=== PATIENT | male | born 1935 | race Caucasian/White ===

== ENCOUNTER → 2017-07-15 | Outpatient (CLI) | payer MEDICARE ==
[~2017-07-15] MED LIST: ALBU8I INH; ASPI-99 PO; FISH120014 PO; HYDR-3580 PO; METO25 PO; NEXI40CA PO; POTA10IN2 PO; PRAS10 PO; ROSU20 PO; TAB-TAB PO; TIOT18I INH; VITA20002 PO
--- NOTE | 2017-07-23 10:05 | RSPPFT ---
DATE OF PROCEDURE: 07/15/17 COMMENTS: VOLUMES DYNAMIC: FVC normal; FEV1 mildly reduced. STATIC: FRC, RV and TLC normal. FLOWS: FEV1% moderately reduced; FEF 25-75 severely reduced. DIFFUSION: Moderately reduced. FLOW VOLUME LOOP: Pattern of variable intrathoracic airways obstruction. IMPRESSION: Mild to moderate obstructive ventilatory defect without significant hyperinflation. There is a moderate reduction in diffusion and minimal improvement post-bronchodilator.
== END ==
LOC: PHRSP 07:34
PROVIDERS: ATTEND Internal Medicine
DX: J44.9 Chronic obstructive pulmonary disease, unspecified (principal)
CPT/HCPCS: 94060; 94620; 94726; 94729

== ENCOUNTER 2017-12-10 13:04 | Observation (INO) | payer MEDICARE ==
[~2017-12-10] VITALS: Ht 175.3 cm; Wt 85.0 kg
[2017-12-10] VITALS (8 sets, daily range): BP systolic 104–167; BP diastolic 59–74; PULSE 48–80; RESP 16–20; TEMP 97.7–98.2; O2SAT 94–98
[2017-12-10] MEDS ORDERED: SODIUM CHLORIDE 0.9% FLUSH 10 ML FLUSH IVF PRN (13:30)
[2017-12-10] MEDS ORDERED: ASPIRIN 81 MG CHEW TAB PO ONE (13:30)
--- NOTE | 2017-12-10 13:31 | PD ---
HPI Chief Complaint: Cardiac Complaint Time Seen by Provider: 13:22 Travel History International Travel<30 days: No Contact w/Intl Traveler<30days: No Traveled to known affect area: No History of Present Illness HPI 82-year-old male with history of CAD status post CABG, high cholesterol, presents to the ER today because he is having left lateral chest and left arm pains. He states the pain is currently a 7 out of 10. He denies any coughing, shortness of breath, or other symptoms. He states that when he had his cardiac issues, he had a similar type of pain. 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) Hypertension: No Immune Disorder: No Musculoskeletal: Yes (ABD HERNIA) Neurologic: No Psychiatric: No Reproductive: No Respiratory: Yes Radiation Therapy: No Sleep Apnea: No Ulcer: Yes Past Surgical History Abdominal Surgery: Yes (COLON RESECTION FOR CA) Coronary Artery Bypass Graft: Yes (AUG 2014) Tonsillectomy: Yes Other Surgery: Yes (colon ) Social History Alcohol Use: Yes (RARE) Tobacco Use: No (QUIT 1.5 YEARS AGO) Substance Use: No Allergies-Medications (Allergen,Severity, Reaction): Coded Allergies: No Known Allergies (Verified , 01/16/15) Reported Meds & Prescriptions Reported Meds & Active Scripts Active Spiriva 18 Mcg Oral Inh (Tiotropium [place]) 18 Mcg Inhp 18 Mcg INH DAILY Ventolin Hfa (Albuterol Sulfate) 60 Puff/8 Gm Aero 2 Puff INH Q4H PRN 30 Days Metoprolol Tartrate 25 mg (Metoprolol Tartrate) 25 Mg Tab 25 Mg PO BID 30 Days Hydrocodone/Acetaminophen 7.5 mg/325 mg 1 Tab Tab 1 Tab PO Q6 PRN Effient (Prasugrel) 10 Mg Tab 10 Mg PO DAILY Reported Potassium Chloride ER 10 meq (Potassium Chloride) 10 Meq Cap 1 Cap PO DAILY Multivitamin (Multivitamins) 1 Tab Tab 1 Tab PO DAILY Vitamin D-3 (Cholecalciferol) 2 000 Tab 4,000 Unit PO DAILY Fish Oil ([place]-3 Fatty Acids) 1,200 Mg Cap 1 Cap PO DAILY Aspirin 81 Mg Tab 81 Mg PO HS Crestor (Rosuvastatin Calcium) 20 Mg Tab 5 Mg PO HS Nexium (Esomeprazole Magnesium) 40 Mg Cap 40 Mg PO DAILY Review of Systems Except as stated in HPI: all other systems reviewed are Neg Physical Exam Narrative GENERAL: Well-developed elderly male patient currently in mild distress. Awake and oriented 3. SKIN: Focused skin assessment warm/dry. HEAD: Atraumatic. Normocephalic. EYES: Pupils equal and round. No scleral icterus. No injection or drainage. ENT: No nasal bleeding or discharge. Mucous membranes pink and moist. NECK: Trachea midline. No JVD. Supple. CARDIOVASCULAR: Regular rate and rhythm. No murmur appreciated. Pulses are present and equal bilaterally. RESPIRATORY: No accessory muscle use. Clear to auscultation. Breath sounds equal bilaterally. GASTROINTESTINAL: Abdomen soft, non-tender, nondistended. Hepatic and splenic margins not palpable. MUSCULOSKELETAL: No obvious deformities. No clubbing. No cyanosis. No edema. NEUROLOGICAL: Awake and alert. No obvious cranial nerve deficits. Motor grossly within normal limits. Normal speech. PSYCHIATRIC: Appropriate mood and affect; insight and judgment normal. Data Data Last Documented VS Vital Signs Date Time Temp Pulse Resp B/P (MAP) Pulse Ox O2 Delivery O2 Flow Rate FiO2 12/10/17 14:05 48 17 109/59 (76) 96 Room Air 12/10/17 13:09 97.7 Orders Orders Complete Blood Count With Diff (12/10/17 13:21) Basic Metabolic Panel (Bmp) (12/10/17 13:21) Ckmb (Isoenzyme) Profile (12/10/17 13:21) Troponin I (12/10/17 13:21) Iv Access Insert/Monitor (12/10/17 13:21) Ecg Monitoring (12/10/17 13:21) Oxygen Administration (12/10/17 13:21) Oximetry (12/10/17 13:21) Electrocardiogram (12/10/17 13:22) Comprehensive Metabolic Panel (12/10/17 13:22) Magnesium (Mg) (12/10/17 13:22) Prothrombin Time / Inr (Pt) (12/10/17 13:22) Act Partial Throm Time (Ptt) (12/10/17 13:22) Bilateral Bp Monitoring (12/10/17 13:22) Aspirin Chew (Aspirin Chew) (12/10/17 13:30) Sodium Chloride 0.9% Flush (Ns Flush) (12/10/17 13:30) Chest, Pa & Lat (12/10/17 13:22) Labs Laboratory Tests Test 12/10/17 13:27 12/10/17 13:56 White Blood Count 6.3 TH/MM3 Red Blood Count 4.70 MIL/MM3 Hemoglobin 14.7 GM/DL Hematocrit 41.8 % Mean Corpuscular Volume 89.1 FL Mean Corpuscular Hemoglobin 31.3 PG Mean Corpuscular Hemoglobin Concent 35.1 % Red Cell Distribution Width 14.4 % Platelet Count 196 TH/MM3 Mean Platelet Volume 8.5 FL Neutrophils (%) (Auto) 73.0 % Lymphocytes (%) (Auto) 18.5 % Monocytes (%) (Auto) 5.8 % Eosinophils (%) (Auto) 2.0 % Basophils (%) (Auto) 0.7 % Neutrophils # (Auto) 4.6 TH/MM3 Lymphocytes # (Auto) 1.2 TH/MM3 Monocytes # (Auto) 0.4 TH/MM3 Eosinophils # (Auto) 0.1 TH/MM3 Basophils # (Auto) 0.0 TH/MM3 CBC Comment DIFF FINAL Differential Comment Blood Urea Nitrogen 17 MG/DL Creatinine 1.37 MG/DL Random Glucose 159 MG/DL Total Protein 7.8 GM/DL Albumin 3.6 GM/DL Calcium Level 9.0 MG/DL Magnesium Level 2.0 MG/DL Alkaline Phosphatase 114 U/L Aspartate Amino Transf (AST/SGOT) 32 U/L Alanine Aminotransferase (ALT/SGPT) 26 U/L Total Bilirubin 0.6 MG/DL Sodium Level 141 MEQ/L Potassium Level 3.8 MEQ/L Chloride Level 107 MEQ/L Carbon Dioxide Level 24.3 MEQ/L Anion Gap 10 MEQ/L Estimat Glomerular Filtration Rate 50 ML/MIN Total Creatine Kinase 81 U/L Troponin I LESS THAN 0.02 NG/ML Prothrombin Time 10.8 SEC Prothromb Time International Ratio 1.1 RATIO Activated Partial Thromboplast Time 28.6 SEC MDM Medical Decision Making Medical Screen Exam Complete: Yes Emergency Medical Condition: Yes Medical Record Reviewed: Yes Interpretation(s) EKG shows NSR, no ST elevation or depression, and no arrhythmias. No significant T-wave inversions. Laboratory Tests Test 12/10/17 13:27 12/10/17 13:56 Neutrophils (%) (Auto) 73.0 % (16.0-70.0) Creatinine 1.37 MG/DL (0.60-1.30) Random Glucose 159 MG/DL (74-106) Estimat Glomerular Filtration Rate 50 ML/MIN (>89) Troponin I LESS THAN 0.02 NG/ML Last 24 hours Impressions Chest X-Ray 12/10/17 1322 Signed Impressions: Service Date/Time: Sunday, December 10, 2017 13:45 - CONCLUSION: No acute disease. Abdirizak Merrill Jr., MD Differential Diagnosis Chest pain: ACS versus dysrhythmias versus pneumonia versus musculoskeletal Narrative Course EKG did not show any signs of ST changes. Cardiac enzymes are negative. Chest x-ray was unremarkable. Patient was given aspirin and my plan would be to admit the patient for further evaluation. Chest pain appears to be fairly atypical but with his history, plan would be to admit him to chest pain center for further evaluation of chest pain. Diagnosis Primary Impression: Atypical chest pain Admitting Information Admitting Physician Requests: it Ria Cuba MD Dec 10, 2017 13:31
[2017-12-10 13:46] LABS: AUTOMATED NEUTROPHIL # 4.6 TH/MM3 (1.8-7.7); BASOPHIL % 0.7 % (0.0-2.0); EOSINOPHIL # 0.1 TH/MM3 (0-0.4); HEMATOCRIT 41.8 % (39.0-51.0); HEMOGLOBIN 14.7 GM/DL (13.0-17.0); LYMPH % 18.5 % (9.0-44.0); LYMPHOCYTE # 1.2 TH/MM3 (1.0-4.8); MEAN CELL VOLUME 89.1 FL (80.0-100.0); MEAN CORPUSCULAR HEMOGLOBIN 31.3 PG (27.0-34.0); MEAN CORPUSCULAR HGB CONC 35.1 % (32.0-36.0); MEAN PLATELET VOLUME 8.5 FL (7.0-11.0); MONO % 5.8 % (0.0-8.0); MONOCYTE # 0.4 TH/MM3 (0-0.9); PLATELET COUNT 196 TH/MM3 (150-450); RED CELL DISTRIBUTION WIDTH 14.4 % (11.6-17.2); WHITE BLOOD COUNT 6.3 TH/MM3 (4.0-11.0)
[2017-12-10 14:08] LABS: BICARBONATE 25.2 MEQ/L (21.0-32.0); BLOOD UREA NITROGEN 16 MG/DL (7-18); CALCIUM 9.2 MG/DL (8.5-10.1); CHLORIDE 107 MEQ/L (98-107); CREATININE 1.29 MG/DL (0.60-1.30); GLOMERULAR FILTRATION RATE 54 ML/MIN (>89); GLUCOSE,RANDOM 168 MG/DL (74-106); SODIUM (NA) 140 MEQ/L (136-145)
--- NOTE | 2017-12-10 14:09 | RADRPT ---
EXAM DATE/TIME: 12/10/2017 13:45 [facility] COMPARISON: No previous studies available for comparison. INDICATIONS : Chest pain that radiates down left arm. MEDICAL HISTORY : Myocardial infarction. SURGICAL HISTORY : Coronary artery stent. CABG. ENCOUNTER: Initial ACUITY: 2 days PAIN SCORE: 7/10 LOCATION: Bilateral chest FINDINGS: PA and lateral views of the chest demonstrate the lungs to be symmetrically aerated without evidence of mass, infiltrate or effusion. The cardiomediastinal contours are unremarkable. Osseous structure s are intact. Median sternotomy wires and plate. CONCLUSION: No acute disease. Abdirizak Merrill Jr., MD on December 10, 2017 at 14:06 Board Certified Radiologist. This report was verified electronically.
[2017-12-10 14:12] LABS: TROPONIN I LESS THAN 0.02 NG/ML (0.02-0.05)
[2017-12-10 14:38] LABS: INTERNATIONAL NORMALIZED RATIO 1.1 RATIO; PROTHROMBIN TIME - PATIENT 10.8 SEC (9.8-11.6)
[2017-12-10 15:13] LABS: ALBUMIN 3.6 GM/DL (3.4-5.0); ALT (GPT) 26 U/L (12-78); AST (GOT) 32 U/L (15-37); BICARBONATE 24.3 MEQ/L (21.0-32.0); BLOOD UREA NITROGEN 17 MG/DL (7-18); CHLORIDE 107 MEQ/L (98-107); CREATININE 1.37 MG/DL (0.60-1.30); GLOMERULAR FILTRATION RATE 50 ML/MIN (>89); GLUCOSE,RANDOM 159 MG/DL (74-106); SODIUM (NA) 141 MEQ/L (136-145)
[2017-12-10 15:18] LABS: ALKALINE PHOSPHATASE 114 U/L (45-117); TOTAL BILIRUBIN ADULT 0.6 MG/DL (0.2-1.0); TOTAL PROTEIN 7.8 GM/DL (6.4-8.2)
[2017-12-10] MEDS ORDERED: FIBE500T PO (16:06)
[2017-12-10] MEDS ORDERED: ONCETAB7 (16:06)
[2017-12-10] MEDS ORDERED: PLAV75TA29 PO (16:06)
[2017-12-10] MEDS ORDERED: OMEGCAP PO (16:06)
[2017-12-10] MEDS ORDERED: ATOR80TA45 PO (16:06)
[2017-12-10] MEDS ORDERED: ASPI81CH6 CHEW (16:06)
[2017-12-10] MEDS ORDERED: METO25TA3 PO (16:06)
[2017-12-10] MEDS ORDERED: CHOL5000 PO (16:06)
[2017-12-10] MEDS ORDERED: NEXI40CA PO (16:06)
--- NOTE | 2017-12-10 16:14 | HHI.HP ---
HPI Primary Care Physician MD Dr. Ivan Nguyễn cardiology Chief Complaint Arm pain History of Present Illness Very pleasant 82-year-old gentleman well-known to Dr. Nevarez with history of known coronary artery disease. He underwent bypass grafting in [address] Morejon at this facility. He subsequently re-presented with arm pain and some chest pain resulting in a re-catheterization and stent placement by Dr. Nevarez. He has had no further arm pain since that time. He is followed routinely by Dr. Nevarez and was in fact scheduled to see him next week. Over the last 3 or 4 days he has been experiencing some episodes of left arm discomfort. In the beginning this was only a 2 or 3 out of 10 but over the last day or so it has increased to 7 or 8 out of 10 in severity. This pain is been occurring at rest although with increasing severity. The pain is described described as an aching feeling inside his arm from the shoulder to the wrist. There is no other radiation. The duration is from a few minutes up to an hour and it is not associated with nausea diaphoresis or other symptoms. The patient is chronically short of breath but is also followed by Dr. Brown for this with a diagnosis of COPD. He is currently pain-free. Review of Systems Respiratory: COMPLAINS OF: See HPI Cardiovascular: COMPLAINS OF: See HPI Past Family Social History Allergies: Coded Allergies: No Known Allergies (Verified , 01/16/15) Past Medical History Other than known coronary artery disease the patient has a history of colon cancer with a resection arthritis COPD and GERD He also has a history of one kidney Past Surgical History CABG in 2012 Colon cancer resection in 2002 Tonsillectomy Bilateral cataracts Reported Medications Reported Meds & Active Scripts Active Spiriva 18 Mcg Oral Inh (Tiotropium [place]) 18 Mcg Inhp 18 Mcg INH DAILY Ventolin Hfa (Albuterol Sulfate) 60 Puff/8 Gm Aero 2 Puff INH Q4H PRN 30 Days Metoprolol Tartrate 25 mg (Metoprolol Tartrate) 25 Mg Tab 25 Mg PO BID 30 Days Hydrocodone/Acetaminophen 7.5 mg/325 mg 1 Tab Tab 1 Tab PO Q6 PRN Effient (Prasugrel) 10 Mg Tab 10 Mg PO DAILY Reported Potassium Chloride ER 10 meq (Potassium Chloride) 10 Meq Cap 1 Cap PO DAILY Multivitamin (Multivitamins) 1 Tab Tab 1 Tab PO DAILY Vitamin D-3 (Cholecalciferol) 2 000 Tab 4,000 Unit PO DAILY Fish Oil ([place]-3 Fatty Acids) 1,200 Mg Cap 1 Cap PO DAILY Aspirin 81 Mg Tab 81 Mg PO HS Crestor (Rosuvastatin Calcium) 20 Mg Tab 5 Mg PO HS Nexium (Esomeprazole Magnesium) 40 Mg Cap 40 Mg PO DAILY Active Ordered Medications Current Medications Medications (Trade) Dose Ordered Sig/Usha Route Start Time Stop Time Status Last Admin (NS Flush) 2 ml UNSCH PRN IVF 12/10/17 13:30 Family History Not pertinent to current admission Social History no alcohol tobacco or substance abuse Distant history of tobacco use but 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 Extraocular movements are intact Mouth mucous membranes moist and well papillated upper and lower plates in place no lesions Neck supple no JVD masses nodes or bruits Chest initially bilateral bibasilar crepitus was noted but this cleared with coughing and he had no rales wheezes or rhonchi Well-healed midline surgical scar Cardiovascular regular sinus rhythm with no gallops rubs or murmurs Abdomen and anterior abdominal wall hernias noted with surgical scars in the upper abdomen and in the lower abdomen from his cancer surgery No tenderness was noted no masses were noted. No guarding or rebound Extremities reveal no clubbing or cyanosis but 1 bordering on 2+ pedal edema Neurologically he is intact with symmetric motor strength of the extremities and intact cranial nerves Laboratory Laboratory Tests Test 12/10/17 13:27 12/10/17 13:56 White Blood Count 6.3 Red Blood Count 4.70 Hemoglobin 14.7 Hematocrit 41.8 Mean Corpuscular Volume 89.1 Mean Corpuscular Hemoglobin 31.3 Mean Corpuscular Hemoglobin Concent 35.1 Red Cell Distribution Width 14.4 Platelet Count 196 Mean Platelet Volume 8.5 Neutrophils (%) (Auto) 73.0 Lymphocytes (%) (Auto) 18.5 Monocytes (%) (Auto) 5.8 Eosinophils (%) (Auto) 2.0 Basophils (%) (Auto) 0.7 Neutrophils # (Auto) 4.6 Lymphocytes # (Auto) 1.2 Monocytes # (Auto) 0.4 Eosinophils # (Auto) 0.1 Basophils # (Auto) 0.0 CBC Comment DIFF FINAL Differential Comment Blood Urea Nitrogen 17 Creatinine 1.37 Random Glucose 159 Total Protein 7.8 Albumin 3.6 Calcium Level 9.0 Magnesium Level 2.0 Alkaline Phosphatase 114 Aspartate Amino Transf (AST/SGOT) 32 Alanine Aminotransferase (ALT/SGPT) 26 Total Bilirubin 0.6 Sodium Level 141 Potassium Level 3.8 Chloride Level 107 Carbon Dioxide Level 24.3 Anion Gap 10 Estimat Glomerular Filtration Rate 50 Total Creatine Kinase 81 Troponin I LESS THAN 0.02 Prothrombin Time 10.8 Prothromb Time International Ratio 1.1 Activated Partial Thromboplast Time 28.6 Result Diagram: 12/10/17 1327 12/10/17 1327 Imaging Negative chest x-ray Course Patient is currently stable he will be ruled out using standard protocol. If negative it is anticipated he will undergo a Lexiscan in the a.m. Because Dr. Nevarez is familiar with the patient and attempt will be made to discuss with him. Caprini VTE Risk Assessment Caprini VTE Risk Assessment: No/Low Risk (score <= 1) Caprini Risk Assessment Model Point Value = 1 Point Value = 2 Point Value = 3 Point Value = 5 Age 41-60 Minor surgery BMI > 25 kg/m2 Swollen legs Varicose veins or History of unexplained or recurrent spontaneous Oral contraceptives or hormone replacement Sepsis (< 1 month) Serious lung disease, including pneumonia (< 1 month) Abnormal pulmonary function Acute myocardial infarction Congestive heart failure (< 1 month) History of inflammatory bowel disease Medical patient at bed rest Age 61-74 Arthroscopic surgery Major open surgery (> 45 min) Laparoscopic surgery (> 45 min) Malignancy Confined to bed (> 72 hours) Immobilizing plaster cast Central venous access Age >= 75 History of VTE Family history of VTE Factor V Leiden Prothrombin [id number] Lupus anticoagulant Anticardiolipin antibodies Elevated serum homocysteine Heparin-induced thrombocytopenia Other congenital or acquired thrombophilia Stroke (< 1 month) Elective arthroplasty Hip, pelvis, or leg fracture Acute spinal cord injury (< 1 month) Prophylaxis Regimen Total Risk Factor Score Risk Level Prophylaxis Regimen 0-1 Low Early ambulation 2 Moderate Order ONE of the following: *Sequential Compression Device (SCD) *Heparin 5000 units SQ BID 3-4 Higher Order ONE of the following medications: *Heparin 5000 units SQ TID *Enoxaparin/Lovenox 40 mg SQ daily (WT < 150 kg, CrCl > 30 mL/min) *Enoxaparin/Lovenox 30 mg SQ daily (WT < 150 kg, CrCl > 10-29 mL/min) *Enoxaparin/Lovenox 30 mg SQ BID (WT < 150 kg, CrCl > 30 mL/min) AND/OR *Sequential Compression Device (SCD) 5 or more Highest Order ONE of the following medications: *Heparin 5000 units SQ TID (Preferred with Epidurals) *Enoxaparin/Lovenox 40 mg SQ daily (WT < 150 kg, CrCl > 30 mL/min) *Enoxaparin/Lovenox 30 mg SQ daily (WT < 150 kg, CrCl > 10-29 mL/min) *Enoxaparin/Lovenox 30 mg SQ BID (WT < 150 kg, CrCl > 30 mL/min) AND *Sequential Compression Device (SCD) Henry Damon MD Dec 10, 2017 16:14
[2017-12-10] MEDS ORDERED: ONDANSETRON HCL 4 MG/2 ML VIAL IV PUSH PRN (16:15)
[2017-12-10] MEDS ORDERED: ACETAMINOPHEN 500 MG CPLT PO PRN (16:15)
[2017-12-10] MEDS ORDERED: cloNIDine HCL 0.1 MG TAB PO PRN (16:15)
[2017-12-10] MEDS ORDERED: RESP: ALBUTEROL 2.5 MG/IPRATROPIUM 0.5 MG NEB (PRN) INH (16:15)
[2017-12-10] MEDS ORDERED: ALPRAZolam 0.25 MG TAB PO PRN (16:15)
[2017-12-10 17:35] LABS: TROPONIN I LESS THAN 0.02 NG/ML (0.02-0.05)
[2017-12-10] MEDS: PANTOPRAZOLE SOD 40 MG DELAYED RELEASE TAB PO SCH (18:42)
[2017-12-10] MEDS ORDERED: ATORVASTATIN 80 MG TAB PO SCH (21:00)
[2017-12-10] MEDS: METOPROLOL TARTRATE 25 MG TAB PO SCH (21:53)
[2017-12-10] MEDS: ACETAMINOPHEN/HYDROcodone 325 MG/7.5 MG TAB PO PRN (21:54)
[2017-12-10 22:55] LABS: TROPONIN I LESS THAN 0.02 NG/ML (0.02-0.05)
[2017-12-11] MEDS: ACETAMINOPHEN/HYDROcodone 325 MG/7.5 MG TAB PO PRN (02:56)
[2017-12-11 04:11] VITALS: BP 132/70; PULSE 64; RESP 18; TEMP 98.2; O2SAT 95
[2017-12-11 08:56] VITALS: BP 119/73; PULSE 60; RESP 18; TEMP 98.2; O2SAT 98
[2017-12-11] MEDS ORDERED: CLOPIDOGREL 75 MG TAB PO SCH (09:00)
[2017-12-11] MEDS ORDERED: NON-FORMULARY DRUG (Esomeprazole DR (Nexium) 40 MG) PO SCH (09:00)
[2017-12-11] MEDS ORDERED: ASPIRIN 325 MG TAB PO SCH (09:00)
[2017-12-11] MEDS: METOPROLOL TARTRATE 25 MG TAB PO SCH (09:00)
[2017-12-11] MEDS ORDERED: REGADENOSON INJ 0.4 MG/5 ML SYR ONE (10:54)
[2017-12-11 12:09] VITALS: BP 107/66; PULSE 70; RESP 18; TEMP 97.9; O2SAT 96
--- NOTE | 2017-12-11 12:33 | RADRPT ---
EXAM DATE/TIME: 12/11/2017 10:38 [facility] COMPARISON: No previous studies available for comparison. INDICATIONS : Chest pain. Angina. DOSE: 26.5 mCi Tc99m Myoview at stress. 8.6 mCi Tc99m Myoview at rest. 0.4 mg Lexiscan STRESS SYMPTOMS: Shortness of breath. EJECTION FRACTION: > 70% MEDICAL HISTORY : Hypertension. Cardiovascular disease Carcinoma, colon. SURGICAL HISTORY : CABG ENCOUNTER: Initial ACUITY: 1 day PAIN SCALE: 3/10 LOCATION: Substernal chest TECHNIQUE: The patient underwent pharmacologic stress with infusion of prescribed dose. Continuous ECG tracing was monitored during stress. Gated SPECT imaging was performed after stress and conventional SPECT i maging was performed at rest. The examination was performed on a SPECT/CT scanner, both attenuation and non-corrected datasets were reviewed. FINDINGS: DISTRIBUTION: The maximum perfused segment at stress is in the lateral wall. PERFUSION STUDY: The pattern of perfusion at stress is within normal limits. GATED STUDY: There is intact wall motion and thickening without hypokinetic or dyskinetic segments. CONCLUSION: Normal examination. RISK CATEGORY: Low risk Mray Lorenzo MD on December 11, 2017 at 12:29 Board Certified Radiologist. This report was verified electronically.
--- NOTE | 2017-12-11 12:35 | TR ---
Date Performed: 12/11/2017 Time Performed: 10:52:29 DOCTOR: Parker Lara DRUG LIST: CLINICAL HISTORY: ANGINA CHEST PAIN REASON FOR TEST: Angina REASON FOR ENDING: OBSERVATION: CONCLUSION: Lexiscan stress test was performed under standard four minute protocol. Radionuclid e was injected one minute prior to ending the test. No electrocardiographic abormalities were present to suggest ischemia. Nuclear imaging and interpretation are pending. COMMENTS:
--- NOTE | 2017-12-11 12:39 | EKG ---
Date Performed: 12/10/2017 Time Performed: 20:28:45 PTAGE: 82 years EKG: Sinus rhythm NORMAL ECG PREVIOUS TRACING : 12/10/2017 17.04 Since previous tracing, no significant change noted DOCTOR: Parker Lara Interpretating Date/Time 12/11/2017 12:39:21
--- NOTE | 2017-12-11 12:42 | EKG ---
Date Performed: 12/10/2017 Time Performed: 17:04:03 PTAGE: 82 years EKG: Sinus rhythm normal ECG PREVIOUS TRACING : 12/10/2017 13.23 Since previous tracing, no significant change noted DOCTOR: Parker Lara Interpretating Date/Time 12/13/2017 07:18:45
--- NOTE | 2017-12-11 12:45 | EKG ---
Date Performed: 12/10/2017 Time Performed: 13:23:58 PTAGE: 82 years EKG: Sinus rhythm Normal ECG PREVIOUS TRACING : 12/07/2017 05.32 Since previous tracing, no significant change noted DOCTOR: Parker Lara Interpretating Date/Time 12/11/2017 12:45:16
--- NOTE | 2017-12-11 12:45 | HHI.DCPOC ---
Discharge Care Plan Diagnosis: (1) Chest pain in adult (2) Hx of coronary artery disease Goals to Promote Your Health * To prevent worsening of your condition and complications * To maintain your health at the optimal level Directions to Meet Your Goals Take your medications as prescribed Follow your dietary instruction Follow activity as directed Keep your appointments as scheduled Take your immunizations and boosters as scheduled If your symptoms worsen call your PCP, if no PCP go to Urgent Care Center or Emergency Room Smoking is Dangerous to Your Health. Avoid second hand smoke Call the 24-hour hour crisis hotline for domestic abuse at Rosaline Bright Dec 11, 2017 12:45
--- NOTE | 2017-12-11 12:46 | HHI.DS ---
Discharge Summary Admission Date Dec 10, 2017 at 15:25 Discharge Date: Dec 11, 2017 Admitting Diagnosis Atypical chest pain (1) Hx of coronary artery disease Diagnosis: Secondary ICD Codes: Z86.79 - Personal history of other diseases of the circulatory system Status: Chronic (2) Chest pain in adult Diagnosis: Secondary ICD Codes: R07.9 - Chest pain, unspecified Status: Acute CBC/BMP: 12/10/17 1327 12/10/17 1327 Significant Findings Laboratory Tests Test 12/10/17 13:27 12/10/17 13:56 12/10/17 16:40 12/10/17 22:22 Neutrophils (%) (Auto) 73.0 % (16.0-70.0) Creatinine 1.37 MG/DL (0.60-1.30) Random Glucose 159 MG/DL (74-106) Estimat Glomerular Filtration Rate 50 ML/MIN (>89) Troponin I LESS THAN 0.02 NG/ML LESS THAN 0.02 NG/ML LESS THAN 0.02 NG/ML Pt Condition on Discharge: Good Discharge Disposition: Discharge Home Discharge Instructions DIET: Follow Instructions for: Heart Healthy Diet Activities you can perform: Regular-No Restrictions Rosaline Bright Dec 11, 2017 12:46
[2017-12-11] MEDS: PANTOPRAZOLE SOD 40 MG DELAYED RELEASE TAB PO SCH (13:06)
== END 2017-12-11 16:06 | disposition home or self-care (01) ==
LOC: NEPC 13:04 → NEDA 15:25 → NEPHCDU 18:09
PROVIDERS: ADMIT Internal Medicine Interventional Cardiology; ATTEND Internal Medicine Interventional Cardiology
DX: R07.9 Chest pain, unspecified (principal); I25.10 Atherosclerotic heart disease of native coronary artery without angina pectoris; E78.00 Pure hypercholesterolemia, unspecified; J44.9 Chronic obstructive pulmonary disease, unspecified; K21.9 Gastro-esophageal reflux disease without esophagitis; Z85.038 Personal history of other malignant neoplasm of large intestine; Z86.79 Personal history of other diseases of the circulatory system; Z95.1 Presence of aortocoronary bypass graft
CPT/HCPCS: 71046; 78452; 80053; 82550; 83735; 84484; 85025; 85610; 85730; 93005; 93017; 99285; A9502; G0378; J2785; 80048

== ENCOUNTER 2017-12-13 09:53 | Emergency (ER) | payer MEDICARE ==
[~2017-12-13] VITALS: Ht 175.3 cm; Wt 84.5 kg
[~2017-12-13 09:53] MED LIST changes: -ALBU8I INH; -ASPI-99 PO; +ASPI81CH6 CHEW; +ATOR80TA45 PO; +CHOL5000 PO; +FIBE500T PO; -FISH120014 PO; -HYDR-3580 PO; -METO25 PO; +METO25TA3 PO; +OMEGCAP PO; +ONCETAB7; +PLAV75TA29 PO; -POTA10IN2 PO; -PRAS10 PO; -ROSU20 PO; -TAB-TAB PO; -TIOT18I INH; -VITA20002 PO
[2017-12-13 10:04] VITALS: BP 140/70; PULSE 70; RESP 16; TEMP 97.4; O2SAT 93
[2017-12-13] MEDS ORDERED: DEXAMETHASONE SOD PHOS 4 MG/ML VIAL IM ONE (11:30)
[2017-12-13] MEDS ORDERED: ORPHENADRINE INJ 60 MG/2 ML AMP IM ONE (11:30)
--- NOTE | 2017-12-13 11:31 | PD ---
HPI Chief Complaint: Musculoskeletal Complaint Time Seen by Provider: 10:57 Travel History International Travel<30 days: No Contact w/Intl Traveler<30days: No Traveled to known affect area: No History of Present Illness HPI 82-year-old male presents to the emergency room for evaluation of left neck, shoulder, and arm pain for the past 5 days. Patient denies any trauma or injury to the area. States he woke up with the pain and is gradually been worsening. He came to the emergency room 3 days ago concerned that it may be cardiac etiology. He was admitted overnight for observation with serial troponin and EKG as well as a myocardial perfusion scan. His cardiac workup was negative. He was told to follow-up with an orthopedist for his pain. Patient states he could not get in for 2 weeks so he came here for pain management. The pain is severe, keeps him up at night. States he cannot get comfortable. Massage seems to be the only thing that helps. He has been taking Tylenol without any relief in symptoms. He has history of arthritis in his neck. 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) Hypertension: Yes Immune Disorder: No Musculoskeletal: Yes (ABD HERNIA) Neurologic: No Psychiatric: No Reproductive: No Respiratory: Yes (copd) Immunizations Current: Yes Radiation Therapy: No Sleep Apnea: No Ulcer: Yes Tetanus Vaccination: > 5 Years Influenza Vaccination: Yes ?: Not Past Surgical History Abdominal Surgery: Yes (COLON RESECTION FOR CA) Coronary Artery Bypass Graft: Yes Tonsillectomy: Yes Other Surgery: Yes (colon ) Social History Alcohol Use: Yes (RARE) Tobacco Use: No (QUIT ) Substance Use: No Allergies-Medications (Allergen,Severity, Reaction): Coded Allergies: oxycodone (Verified Allergy, Intermediate, itchy skin, rash, 12/13/17) Reported Meds & Prescriptions Reported Meds & Active Scripts Active [place] (Hydrocodone-Acetaminophen) 5 Mg-325 Mg Tab 1 Tab PO Q6H PRN Reported Once Daily (Multivitamin) 1 Each Tablet Aspirin Low Dose (Aspirin) 81 Mg Chew 81 Mg CHEW DAILY Plavix (Clopidogrel Bisulfate) 75 Mg Tab 75 Mg PO DAILY Atorvastatin (Atorvastatin Calcium) 80 Mg Tab 80 Mg PO HS Fiber Therapy (Methylcellulose) 500 Mg Tab 2 Tab PO DAILY PRN [place]-3 Fish Oil/Vitamin (Fish Oil-Cholecalciferol) 1,000-1,000 Mg Cap 1 Cap PO DAILY Vitamin D3 (Cholecalciferol) 5,000 Unit Cap 5,000 Units PO DAILY Nexium (Esomeprazole DR) 40 Mg Capdr 40 Mg PO DAILY Metoprolol Tartrate 25 Mg Tab 25 Mg PO BID Review of Systems Except as stated in HPI: all other systems reviewed are Neg Physical Exam Narrative GENERAL: Well-nourished, well-developed male in no acute distress. Afebrile. Ambulatory. SKIN: Focused skin assessment warm/dry. HEAD: Normocephalic. EYES: No scleral icterus. No injection or drainage. NECK: Supple, trachea midline. No JVD or lymphadenopathy. No midline tenderness. Full range of motion. CARDIOVASCULAR: Regular rate and rhythm without murmurs, gallops, or rubs. RESPIRATORY: Breath sounds equal bilaterally. No accessory muscle use. MUSCULOSKELETAL: No cyanosis. No obvious edema. Tenderness to palpation of the left lateral humerus. 2+ radial pulse. Radial, ulnar, and median nerves intact. Full range of motion of the left upper extremity. Data Data Last Documented VS Vital Signs Date Time Temp Pulse Resp B/P (MAP) Pulse Ox O2 Delivery O2 Flow Rate FiO2 12/13/17 10:04 97.4 70 16 140/70 (93) 93 Orders Orders Humerus (Min 2vws) (12/13/17 ) Dexamethasone Inj (Decadron Inj) (12/13/17 11:30) Orphenadrine Inj (Norflex Inj) (12/13/17 11:30) MDM Medical Decision Making Medical Screen Exam Complete: Yes Emergency Medical Condition: Yes Medical Record Reviewed: Yes Differential Diagnosis Nerve impingement, muscle spasm, strain Narrative Course 82-year-old male presents to the emergency room for evaluation of the left neck , shoulder, and arm pain for the past 5 days. Patient denies trauma or injury. He was concerned it was his heart and had a negative cardiac workup just 3 days ago. Physical exam is reassuring, he is resting comfortably in bed. Patient has full range of motion of the left upper extremity with 2+ radial pulse. Radial, ulnar, and median nerves intact. X-ray of the humerus was obtained to evaluate for possible calcific tendinitis though I suspect this is nerve impingement given distribution of pain. X-ray is negative. Patient was given low-dose Decadron and Norflex in the emergency room. He was able to make an appointment with Dr. Singh tomorrow for a follow-up. Patient discharged with prescription for [place] and told to return for worsening symptoms. He understands and agrees to plan. Diagnosis Primary Impression: Cervical nerve root impingement Referrals: Primary Care Physician Additional Instructions: Rest and drink plenty of fluids. [place] as directed, as needed for pain. Do not drink alcohol or drive while taking this medication. Apply ice to the affected area for 20 minutes at a time, as needed for pain and swelling. Follow-up with a primary care physician. Return to the emergency room for worsening symptoms. Scripts Hydrocodone-Acetaminophen ([place]) 5 Mg-325 Mg Tab 1 TAB PO Q6H Y for PAIN, #10 TAB 0 Refills Prov: Angel Martini MD 12/13/17 Disposition: 01 DISCHARGE HOME Condition: Stable Devorah Brunson Dec 13, 2017 11:31
--- NOTE | 2017-12-13 12:21 | RADRPT ---
EXAM DATE/TIME: 12/13/2017 11:27 [facility] COMPARISON: No previous studies available for comparison. INDICATIONS : Left arm pain MEDICAL HISTORY : Myocardial infarction. SURGICAL HISTORY : Coronary artery stent. CABG. ENCOUNTER: Initial ACUITY: 4 - 6 days PAIN SCORE: 6/10 LOCATION: Left upper extremity FINDINGS: Two view examination of the left humerus demonstrates no evidence of fracture or dislocation. Bony m ineralization is normal. The soft tissue structures are intact. CONCLUSION: Negative Rinku Jarvis MD FACR on December 13, 2017 at 12:16 Board Certified Radiologist. This report was verified electronically.
[2017-12-13] MEDS ORDERED: NORC5TAB PO ×2 (12:29→12:30)
== END 2017-12-13 12:43 | disposition home or self-care (01) ==
LOC: PHED 09:53 → PHEFT 12:43
DX: M47.22 Other spondylosis with radiculopathy, cervical region (principal); I10 Essential (primary) hypertension; I25.2 Old myocardial infarction; J44.9 Chronic obstructive pulmonary disease, unspecified; K21.9 Gastro-esophageal reflux disease without esophagitis; Z95.1 Presence of aortocoronary bypass graft; Z87.891 Personal history of nicotine dependence
CPT/HCPCS: 73060; 96372; 99283; J1100; J2360